=== PATIENT | female | born 1955 | race Caucasian/White ===

== ENCOUNTER 2019-03-19 17:07 | Emergency (ER) | payer BC ==
--- NOTE | 2019-03-19 18:16 | EDM.PDOC ---
ED HPI GENERAL MEDICAL PROBLEM - General Chief Complaint: ENT Problem Stated Complaint: ear pain Time Seen by Provider: 03/19/19 18:12 Source of Information: Reports: Patient History Limitations: Reports: No Limitations - History of Present Illness INITIAL COMMENTS - FREE TEXT/NARRATIVE: Patient seen with chief complaint of sinus headaches for a couple days then in the last 3 days she's been complaining of ear pain which is worse like to be seen for this Onset: Gradual Duration: Day(s):, Getting Worse Location: Reports: Head Quality: Reports: Ache, Throbbing Severity: Mild Improves with: Reports: None Worsens with: Reports: None Associated Symptoms: Reports: No Other Symptoms Treatments PRESS WRITER: Reports: Acetaminophen, Cold Therapy, Home Treatments, Other ( see below) Other Treatments PRESS WRITER: claritin D and mucinex today Left Ear Pain Score (Numeric/FACES): 8 - Related Data Allergies Allergy/AdvReac Type Severity Reaction Status Date / Time Penicillins Allergy Hives Verified 03/10/14 18:34 Sulfa (Sulfonamide Allergy Hives Verified 03/10/14 18:34 Antibiotics) Home Meds: Home Meds Aspirin [Children's Aspirin] 81 mg PO QAM 03/10/14 [History] Insulin Aspart [NovoLOG] 14 units SUBCUT TIDM 03/10/14 [History] Insulin Glarg,Human.Rec.Analog [Lantus Solostar] 63 units SUBCUT BEDTIME [History] Levothyroxine Sodium 100 mcg PO QAM 03/10/14 [History] Metoprolol Tartrate [Lopressor] 25 mg PO BID 03/10/14 [History] Valsartan/Hydrochlorothiazide [Valsartan-Hctz 160-25 mg Tab] 1 tab PO QAM [History] atorvaSTATin [Lipitor] 10 mg PO BEDTIME 03/10/14 [History] metFORMIN [Glucophage] 1,000 mg PO BID 03/10/14 [History] Azithromycin [Zithromax] 500 mg IV Q24H 6 Days #3 adv 03/19/19 [Rx] Celecoxib 200 mg PO BID 03/19/19 [History] Dapagliflozin Propanediol [Farxiga] 10 mg PO DAILY@07 03/19/19 [History] Fluticasone Furoate [Arnuity Ellipta] 1 spray NASBOTH DAILY 03/19/19 [History] Liraglutide [Victoza 3-Kenny] 1.8 mg SUBCUT DAILY@0700 03/19/19 [History] Timolol Maleate [Timoptic 0.25% Opth Soln] 1 drop EYEBOTH BID 03/19/19 [History] glipiZIDE [Glucotrol XL] 10 mg PO BID 03/19/19 [History] Past Medical History HEENT History: Reports: Impaired Vision Cardiovascular History: Reports: High Cholesterol Gastrointestinal History: Reports: Cholelithiasis Musculoskeletal History: Reports: Arthritis, Fracture Endocrine/Metabolic History: Reports: Diabetes, Type II, Hypothyroidism - Past Surgical History HEENT Surgical History: Reports: Other (See Below) Other HEENT Surgeries/Procedures: 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 GI Surgical History: Reports: Cholecystectomy Musculoskeletal Surgical History: Reports: Other (See Below) Other Musculoskeletal Surgeries/Procedures:: 1995 R ankle surgery with pins/ plates. Social & Family History - Tobacco Use Smoking Status *Q: Never Smoker Second Hand Smoke Exposure: No ED ROS ENT - Review of Systems Review Of Systems: See Below Constitutional: Reports: No Symptoms HEENT: Reports: Ear Pain Respiratory: Reports: No Symptoms Cardiovascular: Reports: No Symptoms Endocrine: Reports: No Symptoms GI/Abdominal: Reports: No Symptoms : Reports: No Symptoms Musculoskeletal: Reports: No Symptoms Skin: Reports: No Symptoms Neurological: Reports: No Symptoms Psychiatric: Reports: No Symptoms Hematologic/Lymphatic: Reports: No Symptoms Immunologic: Reports: No Symptoms ED EXAM, ENT - Physical Exam Exam: See Below Exam Limited By: No Limitations General Appearance: Alert, WD/WN, No Apparent Distress Ears: Hearing Loss, Canal Swelling, TM Bulging Nose: Normal Inspection, Normal Mucousa, No Blood Mouth/Throat: Normal Inspection, Normal Gums, Normal Lips, Normal Oropharynx, Normal Teeth Head: Atraumatic, Normocephalic Neck: Normal Inspection, Supple, Non-Tender, Full Range of Motion Respiratory/Chest: No Respiratory Distress, Lungs Clear, Normal Breath Sounds, No Accessory Muscle Use, Chest Non-Tender Cardiovascular: Normal Peripheral Pulses, Regular Rate, Rhythm, No Edema, No Gallop, No JVD, No Murmur, No Rub GI/Abdominal: Normal Bowel Sounds, Soft, Non-Tender, No Organomegaly, No Distention, No Abnormal Bruit, No Mass (Female) Exam: Normal External Exam, Normal Speculum Exam, Normal Bimanual Exam Rectal (Female) Exam: Normal Exam, Normal Rectal Tone Back: Normal Inspection, Full Range of Motion Extremities: Normal Inspection, Normal Range of Motion, Non-Tender, No Pedal Edema, Normal Capillary Refill Neurological: Alert, Oriented, CN II-XII Intact, Normal Cognition, Normal Gait, Normal Reflexes, No Motor/Sensory Deficits Psychiatric: Normal Affect, Normal Mood Skin: Warm, Dry, Intact, Normal Color, No Rash Lymphatic: No Adenopathy Course - Vital Signs Last Recorded V/S: Last Vital Signs Temp 97.6 F 03/19/19 17:08 Pulse 89 03/19/19 17:08 Resp 16 03/19/19 17:08 BP 142/72 H 03/19/19 17:08 Pulse Ox 100 03/19/19 17:08 Departure - Departure Time of Disposition: 18:22 Disposition: Home, Self-Care 01 Condition: Fair Clinical Impression: Otitis media - Discharge Information *PRESCRIPTION DRUG MONITORING PROGRAM REVIEWED*: No *COPY OF PRESCRIPTION DRUG MONITORING REPORT IN PATIENT ZEINAB: No Referrals: Bronwyn Chavez [employer] [Primary Care Provider] - Care Plan Goals: Patient started on Zithromax 500 daily 6 days she is to follow-up with primary if not better
== END 2019-03-19 18:25 | disposition home or self-care (01) ==
LOC: LL.ED 17:07
DX: H66.92 Otitis media, unspecified, left ear (principal); E78.00 Pure hypercholesterolemia, unspecified; E11.9 Type 2 diabetes mellitus without complications; E03.9 Hypothyroidism, unspecified; M19.90 Unspecified osteoarthritis, unspecified site; Z88.0 Allergy status to penicillin; Z88.2 Allergy status to sulfonamides; Z79.899 Other long term (current) drug therapy; Z79.4 Long term (current) use of insulin; Z79.82 Long term (current) use of aspirin
CPT/HCPCS: 99282

== ENCOUNTER 2022-12-11 09:55 | Emergency (ER) | payer MEDICARE, BC ==
[2022-12-11] MEDS ORDERED: Sodium Chloride 0.9% 1,000 ML IV ONE ×3 (10:15→15:57)
[2022-12-11] MEDS ORDERED: Ondansetron 4 MG/2 ML SDV IVPUSH ONE (10:16)
[2022-12-11] MEDS ORDERED: Sodium Chloride 0.9% 10 ML Syringe FLUSH PRN (10:16)
[2022-12-11 10:43] LABS: BASOPHILS ABSOLUTE AUTO 0.04 K/uL (0.00-0.20); BASOPHILS PERCENT AUTO 0.2 % (0.0-2.0); EOSINOPHILS ABSOLUTE AUTO 0.26 K/uL (0.00-0.50); EOSINOPHILS PERCENT AUTO 1.3 % (0.0-5.0); HEMOGLOBIN 10.2 g/dL (11.7-15.5); LYMPHOCYTES ABSOLUTE AUTO 4.51 K/uL (0.50-3.50); LYMPHOCYTES PERCENT AUTO 22.3 % (10.0-50.0); MEAN CORPUSCULAR HEMOGLOBIN 28.7 pg (28.2-33.3); MEAN CORPUSCULAR HGB CONC 31.9 g/dL (31.7-36.0); MEAN CORPUSCULAR VOLUME 90.1 fL (84.0-98.0); MONOCYTES ABSOLUTE AUTO 1.55 K/uL (0.00-1.00); MONOCYTES PERCENT AUTO 7.7 % (2.0-14.0); NEUTROPHILS ABSOLUTE AUTO 13.87 K/uL (1.40-7.00); NEUTROPHILS PERCENT AUTO 68.5 % (45.0-80.0); PLATELET COUNT,PLT 218 K/uL (150-350); RED BLOOD CELL COUNT 3.55 M/uL (3.77-5.09); RED CELL DISTRIBUTION WIDTH 16.8 % (11.2-14.1); WHITE BLOOD CELL COUNT,WBC 20.2 K/uL (4.0-10.2)
[2022-12-11 11:02] LABS: ALBUMIN 2.6 g/dL (3.4-5.0); BILIRUBIN TOTAL 0.7 mg/dL (0.2-1.0); CALCIUM 9.2 mg/dL (8.5-10.1); CARBON DIOXIDE,CO2 18.1 mmol/L (21.0-32.0); CREATININE 1.48 mg/dL (0.51-1.17); EST CRCL DRUG DOSING (CG) 38.02 mL/min; MAGNESIUM 1.8 mg/dL (1.8-2.4); PROTEIN TOTAL,TP 7.2 g/dL (6.4-8.2)
[2022-12-11 11:03] LABS: ANION GAP 17.5 meq/L (7-15)
[2022-12-11 11:04] LABS: POTASSIUM,K 5.6 mmol/L (3.5-5.1)
[2022-12-11 12:08] LABS: APPEARANCE,URINE CLEAR; BILIRUBIN,URINE NEGATIVE (NEGATIVE); COLOR,URINE YELLOW; GLUCOSE,URINE NEGATIVE (NEGATIVE); KETONES,URINE NEGATIVE (NEGATIVE); LEUKOCYTE ESTERASE,URINE NEGATIVE (NEGATIVE); NITRITE,URINE NEGATIVE (NEGATIVE); OCCULT BLOOD,URINE MODERATE (NEGATIVE); PROTEIN,URINE NEGATIVE (NEGATIVE); UROBILINOGEN,URINE 0.2 E.U./dL (0.2-1.0)
[2022-12-11] MEDS ORDERED: Diltiazem 25 MG/5 ML SDV IVPUSH ONE (12:10)
[2022-12-11 12:15] LABS: BACTERIA,URINE NOT SEEN /HPF (NONE TO FEW); EPITHELIAL CELLS,URINE FEW /LPF; WBC,URINE 0-5 /HPF
[2022-12-11] MEDS ORDERED: Sodium Polystyrene Sulfonate 15 GM/60 ML Susp 60 ML Bot PO ONE (12:15)
[2022-12-11 12:16] LABS: MUCUS,URINE MODERATE /LPF (NEGATIVE)
[2022-12-11] MEDS ORDERED: Lactated Ringers 1,000 ML IV SCH ×3 (12:30→16:00)
[2022-12-11 12:37] LABS: CORONAVIRUS COVID-19 NAA NEGATIVE (NEGATIVE); INFLUENZA A NAA NEGATIVE (NEGATIVE); INFLUENZA B NAA NEGATIVE (NEGATIVE); RESPIRATORY SYNCYTIAL VIR NAA NEGATIVE (NEGATIVE)
[2022-12-11] MEDS ORDERED: Diltiazem IR 60 MG Tab PO ONE (12:37)
[2022-12-11 14:03] LABS: INR 1.1
[2022-12-11 14:16] LABS: CALCIUM 8.9 mg/dL (8.5-10.1); CARBON DIOXIDE,CO2 18.8 mmol/L (21.0-32.0); CREATININE 1.37 mg/dL (0.51-1.17); EST CRCL DRUG DOSING (CG) 41.07 mL/min
[2022-12-11 14:18] LABS: ANION GAP 14.8 meq/L (7-15)
[2022-12-11 14:19] LABS: POTASSIUM,K 5.6 mmol/L (3.5-5.1)
[2022-12-11] MEDS ORDERED: Diltiazem 125 MG in Sodium Chloride 0.9% 100 ML IV SCH (16:00)
== END 2022-12-11 18:50 ==
LOC: LL.ED 09:55 → SUPCPDRO 09:55 → LL.ED 18:50
DX: I48.91 Unspecified atrial fibrillation (principal); E86.0 Dehydration; E87.5 Hyperkalemia; N28.9 Disorder of kidney and ureter, unspecified; R74.02 Elevation of levels of lactic acid dehydrogenase [LDH]; E78.00 Pure hypercholesterolemia, unspecified; E11.9 Type 2 diabetes mellitus without complications; E03.9 Hypothyroidism, unspecified; M19.90 Unspecified osteoarthritis, unspecified site; Z88.0 Allergy status to penicillin; Z88.2 Allergy status to sulfonamides; Z88.8 Allergy status to other drugs, medicaments and biological substances; Z79.82 Long term (current) use of aspirin; Z79.899 Other long term (current) drug therapy; Z79.4 Long term (current) use of insulin; Z20.822 Contact with and (suspected) exposure to COVID-19
CPT/HCPCS: 0241U; 36415; 71046; 80048; 80053; 81001; 83605; 83735; 83880; 84443; 84484; 85025; 85610; 93005; 93010; 96361; 96365; 96366; 96367; 96376; 99284; 99285-25; A9270-GY; J2405; J3475; J3490; J7030; J7120

== ENCOUNTER 2023-01-24 12:39 | Emergency (ER) | payer MEDICARE, BC ==
[2023-01-24] MEDS ORDERED: Furosemide 40 MG/4 ML VIAL IVPUSH ONE (13:00)
[2023-01-24] MEDS ORDERED: Potassium Bicarbonate/Cit Ac 20 MEQ Effervescent Tab PO ONE (14:31)
== END 2023-01-24 15:00 | disposition home or self-care (01) ==
LOC: LL.ED 12:39
DX: L03.116 Cellulitis of left lower limb (principal); E11.9 Type 2 diabetes mellitus without complications; E03.9 Hypothyroidism, unspecified; E78.00 Pure hypercholesterolemia, unspecified; I10 Essential (primary) hypertension; Z88.0 Allergy status to penicillin; Z88.2 Allergy status to sulfonamides; Z88.8 Allergy status to other drugs, medicaments and biological substances; Z79.4 Long term (current) use of insulin; Z79.84 Long term (current) use of oral hypoglycemic drugs; Z79.899 Other long term (current) drug therapy
CPT/HCPCS: 93005; 96374; 99283-25; A9270-GY; J1940

== ENCOUNTER 2023-05-21 13:25 | Emergency (ER) | payer MEDICARE, BC ==
[2023-05-21] MEDS ORDERED: Sodium Chloride 0.9% 1,000 ML IV ONE ×2 (13:31→14:23)
[2023-05-21] MEDS ORDERED: Cefepime 2 GM Vial IVPUSH ONE (14:14)
[2023-05-21] MEDS ORDERED: VANCOmycin 2 GM/400 ML 2 GM in Premix Bag 1 BAG IV ONE (14:18)
[2023-05-21 14:19] LABS: BASOPHILS ABSOLUTE AUTO 0.01 K/uL (0.00-0.20); BASOPHILS PERCENT AUTO 0.2 % (0.0-2.0); EOSINOPHILS ABSOLUTE AUTO 0.13 K/uL (0.00-0.50); EOSINOPHILS PERCENT AUTO 2.1 % (0.0-5.0); HEMATOCRIT 27.7 % (34.0-46.0); HEMOGLOBIN 9.5 g/dL (11.7-15.5); LYMPHOCYTES ABSOLUTE AUTO 1.39 K/uL (0.50-3.50); LYMPHOCYTES PERCENT AUTO 22.8 % (10.0-50.0); MEAN CORPUSCULAR HEMOGLOBIN 29.7 pg (28.2-33.3); MEAN CORPUSCULAR HGB CONC 34.3 g/dL (31.7-36.0); MEAN CORPUSCULAR VOLUME 86.6 fL (84.0-98.0); MONOCYTES ABSOLUTE AUTO 0.55 K/uL (0.00-1.00); NEUTROPHILS ABSOLUTE AUTO 4.01 K/uL (1.40-7.00); NEUTROPHILS PERCENT AUTO 65.9 % (45.0-80.0); PLATELET COUNT,PLT 181 K/uL (150-350); WHITE BLOOD CELL COUNT,WBC 6.1 K/uL (4.0-10.2)
[2023-05-21] MEDS: Sodium Chloride 0.9% 10 ML Syringe FLUSH PRN ×2 (14:20→14:25)
[2023-05-21 14:28] LABS: APPEARANCE,URINE CLOUDY; BILIRUBIN,URINE MODERATE (NEGATIVE); COLOR,URINE DARK YELLOW; GLUCOSE,URINE NEGATIVE (NEGATIVE); KETONES,URINE 15 mg/dL (NEGATIVE); LEUKOCYTE ESTERASE,URINE NEGATIVE (NEGATIVE); NITRITE,URINE NEGATIVE (NEGATIVE); OCCULT BLOOD,URINE NEGATIVE (NEGATIVE); PH,URINE 5.5 (5.0-9.0); PROTEIN,URINE 30 mg/dL (NEGATIVE)
[2023-05-21 14:47] LABS: INR 1.8 (0.9-1.1); PROTHROMBIN TIME 17.2 SEC (9.0-11.1)
[2023-05-21 14:50] LABS: EPITHELIAL CELLS,URINE FEW /LPF; HYALINE CASTS,URINE FEW; MUCUS,URINE FEW /LPF (NEGATIVE); RBC,URINE 0-5 /HPF; WBC,URINE 0-5 /HPF
[2023-05-21 14:51] LABS: BACTERIA,URINE NOT SEEN /HPF (NONE TO FEW); LACTIC ACID 3.5 mmol/L (0.4-2.0)
[2023-05-21 14:53] LABS: CORONAVIRUS COVID-19 NAA NEGATIVE (NEGATIVE); INFLUENZA A NAA NEGATIVE (NEGATIVE); INFLUENZA B NAA NEGATIVE (NEGATIVE); RESPIRATORY SYNCYTIAL VIR NAA NEGATIVE (NEGATIVE)
[2023-05-21 14:56] LABS: ANION GAP 16.5 meq/L (7-15); BILIRUBIN TOTAL 2.6 mg/dL (0.2-1.0); CALCIUM 8.2 mg/dL (8.5-10.1); CARBON DIOXIDE,CO2 17.8 mmol/L (21.0-32.0); CREATININE 1.36 mg/dL (0.51-1.17); EST CRCL DRUG DOSING (CG) 41.37 mL/min; POTASSIUM,K 4.3 mmol/L (3.5-5.1); PROTEIN TOTAL,TP 6.7 g/dL (6.4-8.2)
[2023-05-21] MEDS ORDERED: Sodium Chloride 3% 500 ML IV SCH (15:15)
[2023-05-21] MEDS ORDERED: 50% Dextrose in Water 50 ML Syringe IVPUSH ONE (16:00)
[2023-05-21] MEDS ORDERED: Sodium Chloride 0.9% 1,000 ML IV SCH (16:15)
== END 2023-05-21 16:58 ==
LOC: LL.ED 13:25
DX: A41.9 Sepsis, unspecified organism (principal); R65.21 Severe sepsis with septic shock; K72.90 Hepatic failure, unspecified without coma; E87.1 Hypo-osmolality and hyponatremia; L03.116 Cellulitis of left lower limb; L02.416 Cutaneous abscess of left lower limb; E11.9 Type 2 diabetes mellitus without complications; E03.9 Hypothyroidism, unspecified; I10 Essential (primary) hypertension; E78.00 Pure hypercholesterolemia, unspecified; Z79.4 Long term (current) use of insulin; Z20.822 Contact with and (suspected) exposure to COVID-19; Z79.84 Long term (current) use of oral hypoglycemic drugs; Z79.899 Other long term (current) drug therapy; Z88.0 Allergy status to penicillin; Z88.2 Allergy status to sulfonamides; Z88.8 Allergy status to other drugs, medicaments and biological substances
CPT/HCPCS: 0241U; 36415; 51702; 71045; 80053; 81001; 82947; 83605; 83880; 84484; 85025; 85610; 87040; 87070; 87186; 87205; 93005; 93010; 96361; 96365; 96366; 96375; 99284; 99285-25; J0692; J3370; J3490; J7030; J7040

== ENCOUNTER 2023-06-04 17:53 | Emergency (ER) | payer MEDICARE, BC ==
[2023-06-04] MEDS ORDERED: Sodium Chloride 0.9% 1,000 ML IV ONE ×2 (18:06→19:33)
[2023-06-04] MEDS ORDERED: Sodium Chloride 0.9% 10 ML Syringe FLUSH PRN ×2 (18:06→19:33)
[2023-06-04 18:15] LABS: BASOPHILS ABSOLUTE AUTO 0.06 K/uL (0.00-0.20); BASOPHILS PERCENT AUTO 0.7 % (0.0-2.0); EOSINOPHILS ABSOLUTE AUTO 0.13 K/uL (0.00-0.50); EOSINOPHILS PERCENT AUTO 1.5 % (0.0-5.0); HEMOGLOBIN 9.1 g/dL (11.7-15.5); LYMPHOCYTES ABSOLUTE AUTO 2.38 K/uL (0.50-3.50); MEAN CORPUSCULAR HEMOGLOBIN 31.9 pg (28.2-33.3); MEAN CORPUSCULAR HGB CONC 33.7 g/dL (31.7-36.0); MEAN CORPUSCULAR VOLUME 94.7 fL (84.0-98.0); MONOCYTES ABSOLUTE AUTO 0.88 K/uL (0.00-1.00); NEUTROPHILS ABSOLUTE AUTO 5.38 K/uL (1.40-7.00); NEUTROPHILS PERCENT AUTO 60.8 % (45.0-80.0); PLATELET COUNT,PLT 193 K/uL (150-350); RED BLOOD CELL COUNT 2.85 M/uL (3.77-5.09); RED CELL DISTRIBUTION WIDTH 23.8 % (11.2-14.1); WHITE BLOOD CELL COUNT,WBC 8.8 K/uL (4.0-10.2)
[2023-06-04 18:51] LABS: ALANINE AMINOTRANSFERASE,ALT 15 U/L (12-78); ALKALINE PHOSPHATASE 93 IU/L (46-116); ASPARTATE AMNIOTRANSFERASE,AST 43 U/L (15-37); BILIRUBIN TOTAL 1.6 mg/dL (0.2-1.0); BLOOD UREA NITROGEN,BUN 36 mg/dL (7-18); CALCIUM 8.4 mg/dL (8.5-10.1); CARBON DIOXIDE,CO2 17.5 mmol/L (21.0-32.0); CHLORIDE,CL 100 mmol/L (98-107); GLUCOSE RANDOM 58 mg/dL (70-99); MAGNESIUM 1.8 mg/dL (1.8-2.4); POTASSIUM,K 4.8 mmol/L (3.5-5.1); PRO B-TYPE NATRIUR PEPT,BNPPRO 1550 pg/mL (0-125); PROTEIN TOTAL,TP 5.9 g/dL (6.4-8.2); SODIUM,NA 131 mmol/L (136-145)
[2023-06-04 18:52] LABS: ANION GAP 18.3 meq/L (7-15)
[2023-06-04 18:53] LABS: CREATININE 4.67 mg/dL (0.51-1.17); ESTIMATED GFR 10 mL/min (>=60)
[2023-06-04 18:59] LABS: CORONAVIRUS COVID-19 NAA NEGATIVE (NEGATIVE); INFLUENZA A NAA NEGATIVE (NEGATIVE); INFLUENZA B NAA NEGATIVE (NEGATIVE); RESPIRATORY SYNCYTIAL VIR NAA NEGATIVE (NEGATIVE)
[2023-06-04 19:33] LABS: APPEARANCE,URINE CLOUDY; BILIRUBIN,URINE MODERATE (NEGATIVE); COLOR,URINE YELLOW; GLUCOSE,URINE NEGATIVE (NEGATIVE); KETONES,URINE TRACE mg/dL (NEGATIVE); LEUKOCYTE ESTERASE,URINE LARGE (NEGATIVE); NITRITE,URINE NEGATIVE (NEGATIVE); OCCULT BLOOD,URINE MODERATE (NEGATIVE); PROTEIN,URINE >=300 mg/dL (NEGATIVE); UROBILINOGEN,URINE 0.2 E.U./dL (0.2-1.0)
[2023-06-04] MEDS ORDERED: cefTRIAXone 1 GM Vial IVPUSH ONE (19:38)
[2023-06-04 19:39] LABS: AMORPHOUS SEDIMENT,URINE RARE /HPF (0/HPF); BACTERIA,URINE RARE /HPF (NONE TO FEW); EPITHELIAL CELLS,URINE OCCASIONAL /LPF; HYALINE CASTS,URINE RARE; MUCUS,URINE NOT SEEN /LPF (NEGATIVE); YEAST,URINE MANY /HPF (NEGATIVE)
[2023-06-04] MEDS ORDERED: Norepinephrine Bit/D5W Premix 250 ML IV SCH (19:45)
[2023-06-04] MEDS ORDERED: Hydrocortisone Sodium Succinate 100 MG/2 ML SDV IVPUSH ONE (19:53)
[2023-06-04] MEDS ORDERED: Cefepime 1 GM Vial IVPUSH ONE (20:10)
== END 2023-06-04 20:58 ==
LOC: LL.ED 17:53
DX: I95.9 Hypotension, unspecified (principal); A41.9 Sepsis, unspecified organism; N17.9 Acute kidney failure, unspecified; I11.0 Hypertensive heart disease with heart failure; I50.9 Heart failure, unspecified; E86.0 Dehydration; E78.00 Pure hypercholesterolemia, unspecified; E11.9 Type 2 diabetes mellitus without complications; E03.9 Hypothyroidism, unspecified; E66.9 Obesity, unspecified; Z79.84 Long term (current) use of oral hypoglycemic drugs; Z79.899 Other long term (current) drug therapy; Z88.0 Allergy status to penicillin; Z88.2 Allergy status to sulfonamides; Z88.4 Allergy status to anesthetic agent; Z68.31 Body mass index [BMI] 31.0-31.9, adult; Z20.822 Contact with and (suspected) exposure to COVID-19
CPT/HCPCS: 0241U; 36415; 71045; 80053; 81001; 83605; 83735; 83880; 84484; 85025; 87040; 87086; 93005; 96361; 96365; 96375; 99285-25; J0692; J0696; J1720; J3490; J7030

== ENCOUNTER 2023-06-22 17:34 | Inpatient (IN) | payer MEDICARE, BC ==
[2023-06-22 18:05] LABS: BASOPHILS ABSOLUTE AUTO 0.06 K/uL (0.00-0.20); BASOPHILS PERCENT AUTO 0.3 % (0.0-2.0); EOSINOPHILS ABSOLUTE AUTO 0.15 K/uL (0.00-0.50); EOSINOPHILS PERCENT AUTO 0.7 % (0.0-5.0); LYMPHOCYTES ABSOLUTE AUTO 1.86 K/uL (0.50-3.50); LYMPHOCYTES PERCENT AUTO 9.1 % (10.0-50.0); MEAN CORPUSCULAR HEMOGLOBIN 33.5 pg (28.2-33.3); MEAN CORPUSCULAR HGB CONC 32.1 g/dL (31.7-36.0); MEAN CORPUSCULAR VOLUME 104.5 fL (84.0-98.0); MONOCYTES ABSOLUTE AUTO 1.61 K/uL (0.00-1.00); MONOCYTES PERCENT AUTO 7.9 % (2.0-14.0); NEUTROPHILS ABSOLUTE AUTO 16.76 K/uL (1.40-7.00); PLATELET COUNT,PLT 135 K/uL (150-350); RED BLOOD CELL COUNT 1.55 M/uL (3.77-5.09); RED CELL DISTRIBUTION WIDTH 22.2 % (11.2-14.1); WHITE BLOOD CELL COUNT,WBC 20.4 K/uL (4.0-10.2)
[2023-06-22 18:21] LABS: HEMATOCRIT 16.2 % (34.0-46.0); HEMOGLOBIN 5.2 g/dL (11.7-15.5); INR 1.4 (0.9-1.1); PROTHROMBIN TIME 13.3 SEC (9.0-11.1)
[2023-06-22 18:31] LABS: ALANINE AMINOTRANSFERASE,ALT 104 U/L (12-78); ALBUMIN 2.7 g/dL (3.4-5.0); ALKALINE PHOSPHATASE 260 IU/L (46-116); ASPARTATE AMNIOTRANSFERASE,AST 134 U/L (15-37); BILIRUBIN TOTAL 2.7 mg/dL (0.2-1.0); BLOOD UREA NITROGEN,BUN 86 mg/dL (7-18); CARBON DIOXIDE,CO2 26.6 mmol/L (21.0-32.0); CHLORIDE,CL 96 mmol/L (98-107); GLUCOSE RANDOM 122 mg/dL (70-99); POTASSIUM,K 4.6 mmol/L (3.5-5.1); PRO B-TYPE NATRIUR PEPT,BNPPRO 3158 pg/mL (0-125); SODIUM,NA 134 mmol/L (136-145)
[2023-06-22 18:32] LABS: CREATININE 4.12 mg/dL (0.51-1.17); ESTIMATED GFR 11 mL/min (>=60)
[2023-06-22] MEDS ORDERED: Morphine 2 MG/ML SYRINGE IVPUSH PRN (20:55)
[2023-06-22] MEDS ORDERED: Ondansetron 4 MG/2 ML SDV IVPUSH PRN (20:57)
[2023-06-22] MEDS ORDERED: Acetaminophen 325 MG Tab PO PRN (21:53)
[2023-06-22] MEDS ORDERED: Non-Formulary Medication 1 Each (Fluticasone Furoate [Arnuity Ellipta] 50 MCG Blst.W.Dev) NASBOTH PRN (21:53)
[2023-06-22] MEDS ORDERED: 50% Dextrose in Water 50 ML Syringe IVPUSH PRN (21:57)
[2023-06-22] MEDS ORDERED: Glucagon,Human Recombinant 1 MG Vial IM PRN (21:57)
[2023-06-22] MEDS: LORazepam 2 MG/ML SDV IVPUSH PRN (22:57)
[2023-06-22] MEDS: Sodium Chloride 0.9% 10 ML Syringe FLUSH PRN (22:58)
[2023-06-23] MEDS: Insulin Lispro 100 Units/ML 3 ML Vial SUBCUT SCH ×2 (08:08→17:14)
[2023-06-23] MEDS: TIMOLOL MALEATE 0.25% EYEBOTH SCH ×2 (08:47→17:15)
[2023-06-23] MEDS: Levothyroxine 150 MCG Tab PO SCH (08:47)
[2023-06-23] MEDS: Lidocaine 4% 1 each Patch TOP SCH (08:48)
[2023-06-23] MEDS ORDERED: Insulin Glarg,Human.Rec.Analog 100 Unit/ML 10 ML Vial SUBCUT SCH (20:00)
[2023-06-23] MEDS: LORazepam 2 MG/ML SDV IVPUSH PRN (23:26)
[2023-06-24] MEDS: Levothyroxine 150 MCG Tab PO SCH (07:42)
[2023-06-24] MEDS: TIMOLOL MALEATE 0.25% EYEBOTH SCH (07:42)
[2023-06-24] MEDS: Lidocaine 4% 1 each Patch TOP SCH (07:42)
[2023-06-24 08:28] VITALS: BP 94/56; PULSE 108
[2023-06-24] MEDS: Sodium Chloride 0.9% 10 ML Syringe FLUSH PRN (08:53)
== END 2023-06-24 09:00 | disposition hospice, home (50) | DRG 951 ==
LOC: LL.ED 17:34 → LL.MS 18:45
PROVIDERS: ADMIT Physician Assistant; ATTEND Physician Assistant
DX: Z51.5 Encounter for palliative care (principal); A41.9 Sepsis, unspecified organism; K65.2 Spontaneous bacterial peritonitis; N17.9 Acute kidney failure, unspecified; L03.116 Cellulitis of left lower limb; L03.115 Cellulitis of right lower limb; R18.8 Other ascites; R09.02 Hypoxemia; E66.9 Obesity, unspecified; Z66 Do not resuscitate; D64.9 Anemia, unspecified; E78.00 Pure hypercholesterolemia, unspecified; H91.90 Unspecified hearing loss, unspecified ear; M19.90 Unspecified osteoarthritis, unspecified site; I12.9 Hypertensive chronic kidney disease with stage 1 through stage 4 chronic kidney disease, or unspecified chronic kidney disease; E11.22 Type 2 diabetes mellitus with diabetic chronic kidney disease; I10 Essential (primary) hypertension; N18.30 Chronic kidney disease, stage 3 unspecified; E11.9 Type 2 diabetes mellitus without complications; K74.60 Unspecified cirrhosis of liver; E03.9 Hypothyroidism, unspecified; Z90.721 Acquired absence of ovaries, unilateral; Z79.890 Hormone replacement therapy; Z88.0 Allergy status to penicillin; Z88.8 Allergy status to other drugs, medicaments and biological substances; Z88.4 Allergy status to anesthetic agent; Z88.2 Allergy status to sulfonamides; Z79.899 Other long term (current) drug therapy; Z79.4 Long term (current) use of insulin; Z90.49 Acquired absence of other specified parts of digestive tract
CPT/HCPCS: 36415; 71045; 80053; 82947; 83880; 84484; 85025; 85610; 99285; A9270-GY; J2060; J2270; J3490